=== PATIENT | female | born 1970 | race Caucasian/White ===

== ENCOUNTER 2019-03-21 17:35 | Emergency (ER) | payer OTHER ==
[2019-03-21] MEDS ORDERED: Acetaminophen/HYDROcodone 325-5 MG Tab PO ONE (17:54)
--- NOTE | 2019-03-21 18:00 | EDM.PDOC ---
ED HPI GENERAL MEDICAL PROBLEM - General Chief Complaint: Lower Extremity Injury/Pain Stated Complaint: SLIPPED ON ICE/RIGHT KNEE PAIN Time Seen by Provider: 03/21/19 17:47 Source of Information: Reports: Patient History Limitations: Reports: No Limitations - History of Present Illness INITIAL COMMENTS - FREE TEXT/NARRATIVE: The patient presents with right knee pain. She was taking out the garbage on Monday and she slipped on some ice and twisted her knee. She did hear a pop and feel one. The pain has gotten worse. There has not been swelling just pain. Today it popped again. She can put some weight on it. She did try some crutches today. Onset: Sudden Duration: Day(s): (Monday) Location: Reports: Lower Extremity, Right (Knee) Quality: Reports: Sharp Severity: Severe Improves with: Reports: Immobilization Worsens with: Reports: Movement Context: Reports: Trauma (Slipped on ice on Monday) Associated Symptoms: Reports: No Other Symptoms Right Knee Pain Score (Numeric/FACES): 8 - Related Data Allergies Allergy/AdvReac Type Severity Reaction Status Date / Time No Known Allergies Allergy Verified 03/21/19 17:46 Home Meds: Home Meds Hydrocodone/Acetaminophen [Hydrocodon-Acetaminophen 5-325] 1 - 2 each PO Q6HR PRN #20 tablet 03/21/19 [Rx] Past Medical History - Past Health History Medical/Surgical History: Denies Medical/Surgical History Review of Systems - Review of Systems Review Of Systems: See Below Constitutional: Reports: No Symptoms Eyes: Reports: No Symptoms Ears: Reports: No Symptoms Nose: Reports: No Symptoms Mouth/Throat: Reports: No Symptoms Respiratory: Reports: No Symptoms Cardiovascular: Reports: No Symptoms GI/Abdominal: Reports: No Symptoms Genitourinary: Reports: No Symptoms Musculoskeletal: Reports: Other (Knee pain) ED EXAM, GENERAL - Physical Exam Exam: See Below Exam Limited By: No Limitations General Appearance: Alert, No Apparent Distress Ears: Normal External Exam Nose: Normal Inspection Head: Atraumatic, Normocephalic Neck: Normal Inspection Respiratory/Chest: No Respiratory Distress, Lungs Clear, Normal Breath Sounds Cardiovascular: Regular Rate, Rhythm, No Edema, No Murmur GI/Abdominal: Soft, Non-Tender, No Organomegaly, No Mass Back Exam: Normal Inspection Extremities: Other (Pain upon palpation to the left left knee at the proximal tibia. She can lift her leg off of the bed. She has good sensation and pulses distally. Her ligaments are stable but she did have pain the anterior knee.) Course - Vital Signs Last Recorded V/S: Last Vital Signs Temp 98.1 F 03/21/19 17:47 Pulse 98 03/21/19 17:47 Resp 18 03/21/19 17:47 BP 173/96 H 03/21/19 17:47 Pulse Ox 98 03/21/19 17:47 - Orders/Labs/Meds Orders: Active Orders 24 hr Category Date Time Status Knee Min 4V Rt [CR] Stat Exams 03/21/19 17:53 Ordered Meds: Medications Discontinued Medications Generic Name Dose Route Start Last Admin Trade Name Freq PRN Reason Stop Dose Admin Hydrocodone Bitart/Acetaminophen 2 tab 03/21/19 17:54 03/21/19 18:16 [place] 325-5 Mg PO 03/21/19 17:55 2 tab ONETIME ONE Administration - Re-Assessments/Exams Free Text/Narrative Re-Assessment/Exam: 03/21/19 17:59 I ordered hydrocodone 2pills and an x-ray of her knee. 03/21/19 18:34 Her x-ray shows some degenerative changes. I will give her an Sami wrap and crutches and order and MRI of her knee. I will also have her follow up with Dr Gupta. Departure - Departure Time of Disposition: 18:40 Disposition: Home, Self-Care 01 Condition: Good Clinical Impression: Sprain of right knee Qualifiers: Encounter type: initial encounter Involved ligament of knee: unspecified ligament Qualified Code(s): S83.91XA - Sprain of unspecified site of right knee , initial encounter - Discharge Information *PRESCRIPTION DRUG MONITORING PROGRAM REVIEWED*: No *COPY OF PRESCRIPTION DRUG MONITORING REPORT IN PATIENT RODDY: No Prescriptions: Hydrocodone/Acetaminophen [Hydrocodon-Acetaminophen 5-325] 1 - 2 each PO Q6HR PRN #20 tablet PRN Reason: Pain Referrals: Robert Gasca MD [Primary Care Provider] - Cb Gupta MD [Physician] - 2 Weeks Forms: ED Department Discharge Additional Instructions: Ice your knee for 15 minutes 3 times per day for 2 days. Take motrin or tylenol for pain. If that does not help, try the hydrocodone. I have ordered an MRI of his knee. They will call you with a day and time. Please return if you are worse. Sepsis Event Note - Focused Exam Vital Signs: Vital Signs Temp Pulse Resp BP Pulse Ox 03/21/19 17:47 98.1 F 98 18 173/96 H 98 Date Exam was Performed: 03/21/19 Time Exam was Performed: 18:34 - My Orders Last 24 Hours: My Active Orders 03/21/19 17:53 Knee Min 4V Rt [CR] Stat - Assessment/Plan Last 24 Hours: My Active Orders 03/21/19 17:53 Knee Min 4V Rt [CR] Stat
[2019-03-21 18:04] VITALS: BP 173/96; PULSE 98
--- NOTE | 2019-03-22 07:49 | CR ---
Right knee: Four views of the right knee were obtained. Comparison: No prior knee exam. Osteophytes are noted off the medial and lateral knee. Osteophytes are noted off the patella. Small joint effusion is seen. Spurring is noted off the intertibial spines. No acute fracture, dislocation or other bony abnormality is seen. Impression: 1. Degenerative change. Small joint effusion. 2. No acute bony abnormality is identified. Diagnostic code #2 This report was dictated in [place] Standard Time
== END 2019-03-21 18:50 | disposition home or self-care (01) ==
LOC: JD.ED 17:35
DX: S83.91XA Sprain of unspecified site of right knee, initial encounter (principal); W01.0XXA Fall on same level from slipping, tripping and stumbling without subsequent striking against object, initial encounter
CPT/HCPCS: 73564; 99283; A9270

== ENCOUNTER 2019-11-25 09:35 | Day surgery (SDC) | payer OTHER ==
[~2019-11-25 09:35] MED LIST: Acetaminophen 325 MG Tab PO SCH; Bisacodyl 5 MG Tab PO PRN; Lactated Ringers 1,000 ML IV SCH; Lidocaine 1%/Sod Bicarbonate in NS 8.4% 1 ML Syringe IDERM PRN; Magnesium Hydroxide 400 MG/5 ML Susp 30 ML Cup PO PRN; Morphine 2 MG/ML SYRINGE IVPUSH PRN; Naloxone 0.4 MG/ML SDV IVPUSH PRN; Ondansetron 4 MG/2 ML SDV IVPUSH PRN; Pregabalin 25 MG Cap PO SCH; Sennosides 8.6 MG Tab PO PRN; Sodium Chloride 0.9% 10 ML Syringe FLUSH PRN; oxyCODONE ER 10 MG TAB.ER PO SCH
--- NOTE | 2019-11-25 10:10 | PCM.PREANE ---
Preanesthetic Assessment - Anesthesia/Transfusion/Family Hx Anesthesia History: Prior Anesthesia Without Reaction Family History of Anesthesia Reaction: No Transfusion History: No Prior Transfusion(s) - Review of Systems General: No Symptoms Pulmonary: No Symptoms Cardiovascular: No Symptoms Gastrointestinal: No Symptoms Neurological: No Symptoms Other: Reports: None - Physical Assessment NPO Status Date: 11/25/19 NPO Status Time: 23:30 Vital Signs: Last Vital Signs Temp 36.7 C 11/25/19 09:40 Pulse 84 11/25/19 09:40 Resp 16 11/25/19 09:40 BP 155/72 H 11/25/19 09:40 Pulse Ox Height: 1.63 m Weight: 114.759 kg ASA Class: 2 Mental Status: Alert & Oriented x3 Airway Class: Mallampati = 1 Dentition: Reports: Normal Dentition Thyro-Mental Finger Breadths: 3 Mouth Opening Finger Breadths: 3 ROM/Head Extension: Full Lungs: Clear to Auscultation, Normal Respiratory Effort Cardiovascular: Regular Rate, Regular Rhythm - Lab Values: Laboratory Last Values Urine HCG, Qual Negative (NEGATIVE) 11/25/19 09:35 COVID-19 PCR Not detected (NOT DETECT) 11/21/19 10:00 MRSA (PCR) Negative 11/13/19 15:50 - Allergies Allergies/Adverse Reactions: Allergies Allergy/AdvReac Type Severity Reaction Status Date / Time Dairy Products Allergy Nausea and Verified 11/22/19 13:32 Vomiting latex Allergy Hives Verified 11/22/19 13:32 - Acknowledgements Anesthesia Type Planned: Spinal Pt an Appropriate Candidate for the Planned Anesthesia: Yes Alternatives and Risks of Anesthesia Discussed w Pt/Guardian: Yes Pt/Guardian Understands and Agrees with Anesthesia Plan: Yes PreAnesthesia Questionnaire - Past Health History Medical/Surgical History: Denies Medical/Surgical History HEENT History: Reports: Impaired Vision Cardiovascular History: Reports: None Respiratory History: Reports: Asthma (pt states only affects her when she has a cold) Gastrointestinal History: Reports: Cholelithiasis Genitourinary History: Reports: None STATEMENT SERVICES REPRESENTATIVE History: Reports: Other (See Below) Other OB/BYN History: infertility, ovarian dysfunction Musculoskeletal History: Reports: Osteoarthritis, Other (See Below) Other Musculoskeletal History: left knee sprain Neurological History: Reports: None Psychiatric History: Reports: None Endocrine/Metabolic History: Reports: None Hematologic History: Reports: None Immunologic History: Reports: None Oncologic (Cancer) History: Reports: None Dermatologic History: Reports: None - Infectious Disease History Infectious Disease History: Reports: None - Past Surgical History Head Surgeries/Procedures: Reports: None HEENT Surgical History: Reports: None Cardiovascular Surgical History: Reports: None Respiratory Surgical History: Reports: None GI Surgical History: Reports: Cholecystectomy Female Surgical History: Reports: None, Section Male Surgical History: Endocrine Surgical History: Reports: None Neurological Surgical History: Reports: None Musculoskeletal Surgical History: Reports: None Oncologic Surgical History: Reports: None Dermatological Surgical History: Reports: None - SUBSTANCE USE Smoking Status *Q: Never Smoker Recreational Drug Use History: No - HOME MEDS Home Medications: Home Meds Acetaminophen [Tylenol Extra Strength] 1,000 mg PO Q4H PRN 11/22/19 [History] Albuterol [Proventil Neb Soln] 1 dose NEB QID PRN 11/22/19 [History] Albuterol [Ventolin HFA] 2 puff INH Q4H PRN 11/22/19 [History] Cholecalciferol (Vitamin D3) [Vitamin D3] 5,000 unit PO DAILY 11/22/19 [History] - CURRENT (IN HOUSE) MEDS Current Meds: Current Medications Acetaminophen (Tylenol) 975 mg PO ONETIME [facility]LEX Stop: 11/25/19 12:00 Last Admin: 11/25/19 09:47 Dose: 975 mg Documented by: Aspirin (Ecotrin) 325 mg PO BID [facility]LEX Bisacodyl (Dulcolax) 5 mg PO DAILY PRN PRN Reason: Constipation Morphine Sulfate 8 mg/Epinephrine HCl 0.3 mg/Cefuroxime Sodium 750 mg/Ketorolac Tromethamine 30 mg/Sodium Chloride 7.9 ml 0 mg .XX ONETIME ONE Stop: 11/25/19 11:01 Cyclobenzaprine HCl (Flexeril) 10 mg PO TID PRN PRN Reason: Spasms Docusate Sodium (Colace) 100 mg PO BID [facility]LEX Famotidine (Pepcid) 20 mg PO Q12H [facility] Lactated Ringer's (Ringers, Lactated) 1,000 mls @ 125 mls/hr IV ASDIRECTED [facility]LEX Stop: 11/25/19 23:00 Cefazolin Sodium/Dextrose 2 gm (/ Premix) 50 mls @ 100 mls/hr IV Q8H [facility] Stop: 11/25/19 22:59 Ketorolac Tromethamine (Toradol) 15 mg IVPUSH Q6H PRN PRN Reason: Pain Lidocaine/Sodium Bicarbonate (Buffered Lidocaine 1% In Ns 8.4%) 0.25 ml IDERM ONETIME PRN PRN Reason: Prior to IV Start Stop: 11/25/19 18:00 Magnesium Hydroxide (Milk Of Magnesia) 30 ml PO BID PRN PRN Reason: Constipation Morphine Sulfate (Morphine) 2 mg IVPUSH Q2H PRN PRN Reason: Breakthrough Pain Naloxone HCl (Narcan) 0.1 mg IVPUSH Q5M PRN PRN Reason: Oversedation Ondansetron HCl (Zofran) 4 mg IVPUSH Q6H PRN PRN Reason: Nausea/Vomiting Oxycodone HCl (Oxycontin) 10 mg PO ONETIME ALEX Stop: 11/25/19 12:00 Last Admin: 11/25/19 09:47 Dose: 10 mg Documented by: Oxycodone/Acetaminophen (Percocet 325-5 Mg) 1 - 2 tab PO Q4H PRN PRN Reason: Pain Pregabalin (Lyrica) 50 mg PO ONETIME ALEX Stop: 11/25/19 12:00 Last Admin: 11/25/19 09:47 Dose: 50 mg Documented by: Senna (Senna) 8.6 mg PO BID PRN PRN Reason: Constipation Sodium Chloride (Saline Flush) 10 ml FLUSH ASDIRECTED PRN PRN Reason: Keep Vein Open Stop: 11/25/19 18:00 Discontinued Medications Bupivacaine HCl (Sensorcaine-Mpf 0.25%) Confirm Administered Dose 30 ml .ROUTE .STK-MED ONE Stop: 11/25/19 09:49 Cefazolin Sodium (Ancef) Confirm Administered Dose 2 gm .ROUTE .STK-MED ONE Stop: 11/25/19 09:49 Iodine (Iodine 2% Mild Tincture) Confirm Administered Dose 30 ml .ROUTE .STK-MED ONE Stop: 11/25/19 09:49 Tranexamic Acid (Cyklokapron) Confirm Administered Dose 1,000 mg .ROUTE .STK-MED ONE Stop: 11/25/19 09:49 Vancomycin HCl (Vancomycin) Confirm Administered Dose 1 gm .ROUTE .STK-MED ONE Stop: 11/25/19 09:49
[2019-11-25] MEDS ORDERED: Ropivacaine 0.5% 5 MG/ML 30 ML SDV ONE (11:02)
[2019-11-25] MEDS ORDERED: Midazolam 1 MG/ML 2 ML SDV ONE (11:02)
[2019-11-25] MEDS ORDERED: ceFAZolin 1 GM Vial ONE ×2 (11:02→11:40)
[2019-11-25] MEDS ORDERED: fentaNYL 100 MCG/2 ML SDV ONE (11:39)
[2019-11-25] MEDS ORDERED: Lidocaine 1% 2 ML ONE (11:55)
[2019-11-25] MEDS ORDERED: Propofol 200 MG/20 ML SDV ONE ×2 (11:56→12:03)
[2019-11-25] MEDS ORDERED: Lactated Ringers 1,000 ML ONE (12:04)
[2019-11-25] MEDS: ceFAZolin 1 GM Vial ONE ×2 (12:45→12:50)
[2019-11-25] MEDS: Iodine/Sodium Iodide 2% Tincture 30 ML Bottle ONE ×2 (12:45→12:49)
[2019-11-25] MEDS: Bupivacaine 0.25% 10 ML SDV ONE ×2 (12:46→12:56)
[2019-11-25] MEDS: Morphine 8 MG, EPINEPHrine 0.3 MG, Cefuroxime 750 MG, Ketorolac 30 MG, Sodium Chloride ... ONE ×15 (12:46→14:23)
[2019-11-25] MEDS: Vancomycin 1 GM SDV ONE ×2 (12:47→12:58)
[2019-11-25] MEDS ORDERED: Ketorolac 15 MG/ML SDV IVPUSH PRN (13:00)
--- NOTE | 2019-11-25 13:49 | PCM.POSTAN ---
POST ANESTHESIA ASSESSMENT - MENTAL STATUS Mental Status: Alert, Oriented - VITAL SIGNS Vital Signs: Last Vital Signs Temp 97.5 F 11/25/19 13:26 Pulse 84 11/25/19 09:40 Resp 15 11/25/19 13:30 BP 90/42 L 11/25/19 13:30 Pulse Ox 97 11/25/19 13:30 - RESPIRATORY Respiratory Status: Respiratory Rate WNL, Airway Patent, O2 Saturation Stable, Supplemental Oxygen - CARDIOVASCULAR CV Status: Pulse Rate WNL, Blood Pressure Stable - GASTROINTESTINAL GI Status: No Symptoms - PAIN Pain Score: 0 (post SAB) - POST OP HYDRATION Hydration Status: Adequate & Stable
--- NOTE | 2019-11-25 13:53 | PCM.PRNOTE ---
- Free Text/Narrative Note: Postoperative regional pain control requested by surgeon. Pre-op Dx: Right knee osteoarthritis. Post-op Rx: Total Right knee arthroplasty. Procedure: Rt Adductor canal block with U/S guidance Requesting physician: Dr. Cb Ballesteros Risks and benefits discussed with the patient preoperatively including infectio n, bleeding, incomplete or failed block, possible nerve damage, local anesthetic toxicity. Permit signed. Patient after spinal anesthesia post surgery in PACU, stable , alert and awake. Time out performed. Right mid-thigh was prepped with Chloraprep x 1 and allowed to dry. Under aseptic technique, the right femoral artery and sartorius muscle were identified under ultrasound prior to needle insertion. 4" Stimuplex needle #22 G was inserted under US guidance. Under direct visualization of needle tip the injection of 0.5% Ropivacaine with 1:200k epinephrine, total of 30 mls in divided doses, maintaining negative aspiration was completed without problems. No local anesthetic toxicity was noted. Patient is awake, stable and tolerated the procedure well. Time: 13:34 - 13:41 Please see attached U/S pictures.
--- NOTE | 2019-11-25 14:26 | PCM.OPNOTE ---
- General Post-Op/Procedure Note Date of Surgery/Procedure: 11/25/19 Operative Procedure(s): right total knee arthroplasty Pre Op Diagnosis: right knee osteoarthrosis Post-Op Diagnosis: Same Anesthesia Technique: Local, MAC, Spinal Primary Surgeon: Cb Gupta Anesthesia Provider: Wilian Ramirez Measurement Psychologist: Karolyn Ramsey Measurement Psychologist: Nicole Alexander EBL in mLs: 450 Complications: None Condition: Good Free Text/Narrative:: Intake & Output 11/24/19 11/25/19 11/25/19 22:59 06:59 14:59 Intake Total 300 Balance 300 3/3 9mm 29x9
--- NOTE | 2019-11-25 14:32 | CR ---
Right knee: AP and crosstable lateral views right knee were obtained. Comparison: Prior right knee radiographic study of 03/21/19. Knee prosthesis is seen. Components are aligned. Soft tissue air is noted from surgical procedure. Underlying bony structures are intact. Impression: 1. Satisfactory radiographic appearance of recently placed right knee prosthesis. Diagnostic code #2 This report was dictated in MDT
[2019-11-25] MEDS ORDERED: Cyclobenzaprine 10 MG Tab PO PRN (15:00)
[2019-11-25] MEDS ORDERED: ALBUTEROL INH PRN (15:07)
[2019-11-25] MEDS ORDERED: Albuterol 0.021% 0.63 MG/3 ML Neb Soln NEB PRN (15:07)
[2019-11-25] MEDS: ceFAZolin 2 GM in Premix Bag 1 BAG IV SCH (18:03)
[2019-11-25] MEDS: Acetaminophen/oxyCODONE 325-5 MG Tab PO PRN ×2 (18:54→23:17)
[2019-11-25] MEDS: Famotidine 20 MG Tab PO SCH (20:00)
[2019-11-25] MEDS: Docusate Sodium 100 MG Cap PO SCH (20:00)
[2019-11-26] MEDS: ceFAZolin 2 GM in Premix Bag 1 BAG IV SCH ×2 (02:38→09:17)
[2019-11-26] MEDS: Acetaminophen/oxyCODONE 325-5 MG Tab PO PRN ×2 (03:17→08:15)
[2019-11-26 08:07] VITALS: BP 142/78; PULSE 84
[2019-11-26] MEDS: Famotidine 20 MG Tab PO SCH (08:09)
[2019-11-26] MEDS: Docusate Sodium 100 MG Cap PO SCH (08:09)
--- NOTE | 2019-11-26 08:29 | PCM.SURGPN ---
- General Info Date of Service: 11/26/19 POD#: 1 Functional Status: Reports: Pain Controlled, Tolerating Diet, Ambulating, Urinating, Incentive Spirometry, Other (The pt states she is doing very well and walked 4 times.) - Patient Data Vitals - Most Recent: Last Vital Signs Temp 98.6 F 11/26/19 07:38 Pulse 84 11/26/19 07:38 Resp 16 11/26/19 07:38 BP 142/78 H 11/26/19 07:38 Pulse Ox 94 L 11/26/19 07:38 Weight - Most Recent: 259 lb 4.8 oz I&O - Last 24 Hours: Intake & Output 11/25/19 11/26/19 11/26/19 22:59 06:59 14:59 Intake Total 100 975 Output Total 0 900 Balance 100 75 Lab Results Last 24 Hrs: Laboratory Results - last 24 hr 11/25/19 11/26/19 11/26/19 Range/Units 09:35 05:27 05:27 WBC 11.04 H (3.98-10.04) K/mm3 RBC 4.10 (3.98-5.22) M/mm3 Hgb 11.9 D (11.2-15.7) gm/dl Hct 37.2 (34.1-44.9) % MCV 90.7 (79.4-94.8) fl MCH 29.0 (25.6-32.2) pg MCHC 32.0 L (32.2-35.5) g/dl RDW Std Deviation 44.0 (36.4-46.3) fL Plt Count 155 L (182-369) K/mm3 MPV 13.7 H (9.4-12.3) fl Sodium 136 (136-145) mEq/L Potassium 4.3 (3.5-5.1) mEq/L Chloride 102 (98-107) mEq/L Carbon Dioxide 27 (21-32) mEq/L Anion Gap 11.3 (5-15) BUN 18 (7-18) mg/dL Creatinine 0.7 (0.55-1.02) mg/dL Est Cr Clr Drug Dosing 85.79 mL/min Estimated GFR (MDRD) > 60 (>60) mL/min BUN/Creatinine Ratio 25.7 H (14-18) Glucose 113 H (74-106) mg/dL Total Bilirubin 0.4 (0.2-1.0) mg/dL AST 32 (15-37) U/L ALT 33 (14-59) U/L Alkaline Phosphatase 62 (46-116) U/L Total Protein 6.3 L (6.4-8.2) g/dl Albumin 3.1 L (3.4-5.0) g/dl Globulin 3.2 gm/dL Albumin/Globulin Ratio 1.0 (1-2) Urine HCG, Qual Negative (NEGATIVE) Med Orders - Current: Current Medications Albuterol (Proventil Neb Soln) 0.63 mg NEB QID PRN PRN Reason: asthma Aspirin (Ecotrin) 325 mg PO BID [facility] Last Admin: 11/26/19 08:09 Dose: 325 mg Documented by: Bisacodyl (Dulcolax) 5 mg PO DAILY PRN PRN Reason: Constipation Cholecalciferol (Vitamin D3) 5,000 unit PO DAILY [facility] Last Admin: 11/26/19 08:09 Dose: 5,000 unit Documented by: Cyclobenzaprine HCl (Flexeril) 10 mg PO TID PRN PRN Reason: Spasms Last Admin: 11/25/19 20:00 Dose: 10 mg Documented by: Docusate Sodium (Colace) 100 mg PO BID [facility] Last Admin: 11/26/19 08:09 Dose: 100 mg Documented by: Famotidine (Pepcid) 20 mg PO Q12H [facility] Last Admin: 11/26/19 08:09 Dose: 20 mg Documented by: Cefazolin Sodium/Dextrose 2 gm (/ Premix) 50 mls @ 100 mls/hr IV Q8H [facility] Stop: 11/26/19 10:29 Last Admin: 11/26/19 02:38 Dose: 100 mls/hr Documented by: Magnesium Hydroxide (Milk Of Magnesia) 30 ml PO BID PRN PRN Reason: Constipation Morphine Sulfate (Morphine) 2 mg IVPUSH Q2H PRN PRN Reason: Breakthrough Pain Naloxone HCl (Narcan) 0.1 mg IVPUSH Q5M PRN PRN Reason: Oversedation Albuterol 2 Puff (Ptom) 2 puff INH Q4H PRN PRN Reason: asthma Ondansetron HCl (Zofran) 4 mg IVPUSH Q6H PRN PRN Reason: Nausea/Vomiting Last Admin: 11/25/19 15:55 Dose: 4 mg Documented by: Oxycodone/Acetaminophen (Percocet 325-5 Mg) 1 - 2 tab PO Q4H PRN PRN Reason: Pain Last Admin: 11/26/19 08:15 Dose: 2 tab Documented by: Senna (Senna) 8.6 mg PO BID PRN PRN Reason: Constipation Discontinued Medications Acetaminophen (Tylenol) 975 mg PO ONETIME [facility] Stop: 11/25/19 12:00 Last Admin: 11/25/19 09:47 Dose: 975 mg Documented by: Bupivacaine HCl (Sensorcaine-Mpf 0.25%) Confirm Administered Dose 30 ml .ROUTE .STK-MED ONE Stop: 11/25/19 09:49 Last Admin: 11/25/19 12:56 Dose: 30 ml Documented by: Cefazolin Sodium (Ancef) Confirm Administered Dose 2 gm .ROUTE .STK-MED ONE Stop: 11/25/19 09:49 Last Admin: 11/25/19 12:50 Dose: 2 gm Documented by: Cefazolin Sodium (Ancef) Confirm Administered Dose 1 gm .ROUTE .STK-MED ONE Stop: 11/25/19 11:03 Cefazolin Sodium (Ancef) Confirm Administered Dose 1 gm .ROUTE .STK-MED ONE Stop: 11/25/19 11:41 Morphine Sulfate 8 mg/Epinephrine HCl 0.3 mg/Cefuroxime Sodium 750 mg/Ketorolac Tromethamine 30 mg/Sodium Chloride 7.9 ml 0 mg .XX ONETIME ONE Stop: 11/25/19 11:01 Last Admin: 11/25/19 14:23 Dose: Not Given Documented by: Fentanyl (Sublimaze) Confirm Administered Dose 100 mcg .ROUTE .STK-MED ONE Stop: 11/25/19 11:40 Lactated Ringer's (Ringers, Lactated) 1,000 mls @ 125 mls/hr IV ASDIRECTED [facility] Stop: 11/25/19 23:00 Last Admin: 11/25/19 10:00 Dose: 125 mls/hr Documented by: Lidocaine HCl (Xylocaine-Mpf 1%) Confirm Administered Dose 2 mls @ as directed .ROUTE .STK-MED ONE Stop: 11/25/19 11:56 Lactated Ringer's (Ringers, Lactated) Confirm Administered Dose 1,000 mls @ as directed .ROUTE .STK-MED ONE Stop: 11/25/19 12:05 Iodine (Iodine 2% Mild Tincture) Confirm Administered Dose 30 ml .ROUTE .STK-MED ONE Stop: 11/25/19 09:49 Last Admin: 11/25/19 12:49 Dose: 18 ml Documented by: Ketorolac Tromethamine (Toradol) 15 mg IVPUSH Q6H PRN PRN Reason: Pain Last Admin: 11/25/19 19:54 Dose: 15 mg Documented by: Lidocaine/Sodium Bicarbonate (Buffered Lidocaine 1% In Ns 8.4%) 0.25 ml IDERM ONETIME PRN PRN Reason: Prior to IV Start Stop: 11/25/19 18:00 Last Admin: 11/25/19 09:59 Dose: 0.25 ml Documented by: Midazolam HCl (Versed 1 Mg/Ml) Confirm Administered Dose 2 mg .ROUTE .STK-MED O NE Stop: 11/25/19 11:03 Miscellaneous Medication (Phenylephrine 1 Mg/10 Ml-Ns) Confirm Administered Dose 1 mg IV .STK-MED ONE Stop: 11/25/19 13:03 Oxycodone HCl (Oxycontin) 10 mg PO ONETIME [facility] Stop: 11/25/19 12:00 Last Admin: 11/25/19 09:47 Dose: 10 mg Documented by: Pregabalin (Lyrica) 50 mg PO ONETIME [facility]LEX Stop: 11/25/19 12:00 Last Admin: 11/25/19 09:47 Dose: 50 mg Documented by: Propofol (Diprivan 20 Ml) Confirm Administered Dose 200 mg .ROUTE .STK-MED ONE Stop: 11/25/19 11:57 Propofol (Diprivan 20 Ml) Confirm Administered Dose 400 mg .ROUTE .STK-MED ONE Stop: 11/25/19 12:04 Ropivacaine (Naropin 0.5%) Confirm Administered Dose 30 ml .ROUTE .STK-MED ONE Stop: 11/25/19 11:03 Sodium Chloride (Saline Flush) 10 ml FLUSH ASDIRECTED PRN PRN Reason: Keep Vein Open Stop: 11/25/19 18:00 Tranexamic Acid (Cyklokapron) Confirm Administered Dose 1,000 mg .ROUTE .STK-MED ONE Stop: 11/25/19 09:49 Last Admin: 11/25/19 13:02 Dose: 1,000 mg Documented by: Vancomycin HCl (Vancomycin) Confirm Administered Dose 1 gm .ROUTE .STK-MED ONE Stop: 11/25/19 09:49 Last Admin: 11/25/19 12:58 Dose: 1 gm Documented by: - Exam Wound/Incisions: Dressing Dry and Intact General: Alert, Cooperative, No Acute Distress Lungs: Normal Respiratory Effort Extremities: Other (NVS intact for BLE. Bradford's negative.) Sepsis Event Note - Evaluation Sepsis Screening Result: No Definite Risk - Focused Exam Vital Signs: Vital Signs Temp Pulse Resp BP Pulse Ox 11/26/19 07:38 98.6 F 84 16 142/78 H 94 L 11/26/19 02:28 98.1 F 76 16 141/82 H 95 11/25/19 23:16 98.4 F 83 16 117/76 97 - Problem List Review Problem List Initiated/Reviewed/Updated: Yes - My Orders Last 24 Hours: Active Orders 24 hr Category Date Time Status RT Aerosol Therapy [RC] ASDIRECTED Care 11/25/19 15:08 Active Regular Diet [DIET] Diet 11/25/19 Lunch Active COMPREHENSIVE METABOLIC PN,CMP [CHEM] AM Lab 11/26/19 05:27 Results Albuterol Med 11/25/19 15:07 Active 2 puff INH Q4H PRN Albuterol [Proventil Neb Soln] Med 11/25/19 15:07 Active 0.63 mg NEB QID PRN Aspirin [Ecotrin] Med 11/26/19 09:00 Active 325 mg PO BID Cholecalciferol (Vitamin D3) [Vitamin D3] Med 11/26/19 09:00 Active 5,000 unit PO DAILY Cyclobenzaprine [Flexeril] Med 11/25/19 15:00 Active 10 mg PO TID PRN Docusate Sodium [Colace] Med 11/25/19 21:00 Active 100 mg PO BID Famotidine [Pepcid] Med 11/25/19 21:00 Active 20 mg PO Q12H ceFAZolin [Ancef] 2 gm Med 11/25/19 18:00 Active Premix Bag 1 bag IV Q8H Medication Orders Albuterol (Proventil Neb Soln) 0.63 mg NEB QID PRN PRN Reason: asthma Aspirin (Ecotrin) 325 mg PO BID [facility] Last Admin: 11/26/19 08:09 Dose: 325 mg Documented by: GIRMA Bisacodyl (Dulcolax) 5 mg PO DAILY PRN PRN Reason: Constipation Cholecalciferol (Vitamin D3) 5,000 unit PO DAILY [facility] Last Admin: 11/26/19 08:09 Dose: 5,000 unit Documented by: GIRMA Cyclobenzaprine HCl (Flexeril) 10 mg PO TID PRN PRN Reason: Spasms Last Admin: 11/25/19 20:00 Dose: 10 mg Documented by: JAYE Docusate Sodium (Colace) 100 mg PO BID [facility] Last Admin: 11/26/19 08:09 Dose: 100 mg Documented by: Admin: 11/25/19 20:00 Dose: 100 mg Documented by: JAYE Famotidine (Pepcid) 20 mg PO Q12H [facility] Last Admin: 11/26/19 08:09 Dose: 20 mg Documented by: Admin: 11/25/19 20:00 Dose: 20 mg Documented by: JAYE Cefazolin Sodium/Dextrose 2 gm (/ Premix) 50 mls @ 100 mls/hr IV Q8H [facility] Stop: 11/26/19 10:29 Last Admin: 11/26/19 02:38 Dose: 100 mls/hr Documented by: Infusion: 11/25/19 18:33 Dose: 100 mls/hr Documented by: Admin: 11/25/19 18:03 Dose: 100 mls/hr Documented by: PATITO Magnesium Hydroxide (Milk Of Magnesia) 30 ml PO BID PRN PRN Reason: Constipation Morphine Sulfate (Morphine) 2 mg IVPUSH Q2H PRN PRN Reason: Breakthrough Pain Naloxone HCl (Narcan) 0.1 mg IVPUSH Q5M PRN PRN Reason: Oversedation Albuterol 2 Puff (Ptom) 2 puff INH Q4H PRN PRN Reason: asthma Ondansetron HCl (Zofran) 4 mg IVPUSH Q6H PRN PRN Reason: Nausea/Vomiting Last Admin: 11/25/19 15:55 Dose: 4 mg Documented by: PATITO Oxycodone/Acetaminophen (Percocet 325-5 Mg) 1 - 2 tab PO Q4H PRN PRN Reason: Pain Last Admin: 11/26/19 08:15 Dose: 2 tab Documented by: Admin: 11/26/19 03:17 Dose: 2 tab Documented by: Admin: 11/25/19 23:17 Dose: 2 tab Documented by: Admin: 11/25/19 18:54 Dose: 2 tab Documented by: PATITO Senna (Senna) 8.6 mg PO BID PRN PRN Reason: Constipation - Assessment Assessment (Free Text/Narrative):: POD#1 - right TKA - Plan Plan (Free Text/Narrative):: 1. Discharge to home today. 2. Hgb 11.9. 3. Outpatient therapy. 4. 325mg ASA PO BID, frequent mobility, SCDs. The pt's case was discussed with Dr. Gupta.
--- NOTE | 2019-11-26 08:40 | PCM48HPAN ---
Post Anesthesia Note - EVALUATION WITHIN 48HRS OF ANESTHETIC Vital Signs in Normal Range: Yes Patient Participated in Evaluation: Yes Respiratory Function Stable: Yes Airway Patent: Yes Cardiovascular Function Stable: Yes Hydration Status Stable: Yes Pain Control Satisfactory: Yes Nausea and Vomiting Control Satisfactory: Yes Mental Status Recovered: Yes Vital Signs: Last Vital Signs Temp 37.0 C 11/26/19 07:38 Pulse 84 11/26/19 07:38 Resp 16 11/26/19 07:38 BP 142/78 H 11/26/19 07:38 Pulse Ox 94 L 11/26/19 07:38
[2019-11-26] MEDS ORDERED: Aspirin 325 MG Tab.EC PO SCH (09:00)
[2019-11-26] MEDS ORDERED: Cholecalciferol (Vitamin D3) 5,000 UNIT Tab PO SCH (09:00)
--- NOTE | 2019-11-26 14:55 | OR ---
DATE OF OPERATION: 11/25/2019 SURGEON: Cb Gupta MD This entire procedure was significantly more complicated secondary to the patient's large BMI and her thigh and calf circumference making manipulation of the knee as well as retraction and visualization significantly more difficult throughout the procedure. OPERATION PERFORMED: Right total knee arthroplasty. PREOPERATIVE DIAGNOSIS: Right knee osteoarthrosis. POSTOPERATIVE DIAGNOSIS: Right knee osteoarthrosis. ANESTHESIA: Local MAC with spinal. ANESTHESIA PROVIDER: Katherine Barba. COLD ROLL PACKER SHEET IRON: Karolyn Ramsey PA-C, and Nicole Alexander LPN. ESTIMATED BLOOD LOSS: 450 mL. COMPLICATIONS: None. CONDITION: Stable. IMPLANTS: 1. [place] size 3 press-fit CR femur. 2. [place] size 3 press-fit tibial base plate. 3. [place] size 3, 9 mm CS polyethylene insert. 4. Villa size 29 x 9 mm press-fit asymmetric patella. DESCRIPTION OF PROCEDURE: The patient was identified in the preop holding area. Proper site was marked and identified by the surgeon. The patient was taken back to the operating theater. After adequate anesthesia, the patient's right lower extremity had a nonsterile tourniquet applied and it was sterilely prepped and draped in the usual sterile fashion. OR time-out was performed. The patient received 2 g IV Ancef. At this time, the right lower extremity was exsanguinated. Tourniquet was insufflated to 300 mmHg. Standard medial parapatellar incision was made. Medial parapatellar arthrotomy was created. Deep fibers of the MCL were raised and anterior fat pad was resected. At this time, attention was turned to the patella. Patella measured a 23, it was resected to a 13 for 29 x 9 mm patella. Drill holes were then drilled and found to be in adequate position. The drill was then drilled in the distal femur and the intramedullary distal femoral cutting guide was then placed. 10 mm was resected off the distal femur and was found to be an adequate resection. Sizing guide was placed. It was found to be a size 3 press-fit CR femur that was shown on the implant record at the beginning of this dictation. The drill holes were drilled for the epicondylar axis using [place] line and epicondyles as reference. At this time, the 4-in- 1 cutting block was placed. An anterior posterior and anterior and posterior chamfer cuts were then completed. Attention was turned to the tibia. The posterior medial lateral retractors were placed. The extramedullary tibial guide was placed. It was placed in the old footprint of the ACL. It was aligned with the center of the ankle and 0 degrees of slope, 9 mm was then resected off the unaffected side. There was found to be an acceptable reduction. At this time, posterior osteophytes were removed along with medial and lateral meniscus. A trial implant was placed with a correct sized tibia that was mentioned at the beginning of the dictation. A Villa size 3, 9 mm CS polyethylene insert was then placed. The patient's knee was brought through range of motion. The patella was tracking centrally and was stable to varus and valgus stress. Alignment was found to be roughly at 0 degrees. The tibia was stamped and drilled in proper rotation. The universal tibial base plate was impacted in place. Next, the [place] size 3 press-fit CR femur impacted into place and the Villa size 3, 9 mm CS polyethylene insert was placed. The patient's knee was brought into full extension. The patella was then press-fit in place at this time. Tourniquet was deflated. One liter dilute Betadine solution was irrigated through the knee along with 3 L of pulse lavage irrigation with Ancef. Periarticular injection was then completed. The patient's knee was brought through a range of motion. Knee was found to be stable to varus valgus stress, the patella was tracking centrally with full range of motion. At this time, a #2 barbed suture was used for closure of the medial parapatellar arthrotomy. Topical tranexamic acid was placed. 2-0 Vicryl was used subcutaneously, Prineo was used for the skin. The patient tolerated the procedure well and was sent to the PACU in stable condition. MMRAINA /[id number] MAHAD
== END 2019-11-26 11:25 | disposition home or self-care (01) ==
LOC: JD.SDS 09:35 → JD.MS 09:45 → JD.SDS 11-26 11:25
PROVIDERS: ATTEND Orthopaedic Surgery
DX: M17.11 Unilateral primary osteoarthritis, right knee (principal); J45.909 Unspecified asthma, uncomplicated; Z01.812 Encounter for preprocedural laboratory examination; Z20.828 Contact with and (suspected) exposure to other viral communicable diseases; Z91.040 Latex allergy status; Z91.011 Allergy to milk products
CPT/HCPCS: 27447; 36415; 73560; 80053; 81025; 85027; 87635; 87641; 97110; 97116; 97161; 97165; 97535; A9270; C1776; J0171; J0690; J0697; J1885; J2001; J2250; J2270; J2370; J2405; J2704; J2795; J3010; J3370; J3490; J7120; 01402; 64450; U0002

== ENCOUNTER 2020-11-18 18:33 | Emergency (ER) | payer BC, OTHER ==
[2020-11-18 18:50] VITALS: BP 187/100; PULSE 86
--- NOTE | 2020-11-18 19:44 | EDM.PDOC ---
ED HPI GENERAL MEDICAL PROBLEM - General Chief Complaint: ENT Problem Stated Complaint: LEFT EAR INFECTION Time Seen by Provider: 11/18/20 19:27 Source of Information: Reports: Patient, RN Notes Reviewed - History of Present Illness INITIAL COMMENTS - FREE TEXT/NARRATIVE: 50 yr old female comes in with severe L earache. This started several days ago. Started of cipro drops 2 days ago but sx getting worse instead of better. Has pain outside of ear ear canal that radiates to her jaw. No sore throat, cough or sinus problems. Left Ear Pain Score (Numeric/FACES): 10 - Related Data Allergies Allergy/AdvReac Type Severity Reaction Status Date / Time latex Allergy Hives Verified 11/18/20 18:50 Dairy Products AdvReac Nausea and Verified 11/18/20 18:50 Vomiting Home Meds: Home Meds Albuterol [Proventil Neb Soln] 1 dose NEB QID PRN 11/22/19 [History] Albuterol [Ventolin HFA] 2 puff INH Q4H PRN 11/22/19 [History] Amoxicillin/Clavulanate K [Augmentin 875-125 MG] 1 tab PO BID #20 tablet 11/18/20 [Rx] Ofloxacin [Ocuflox 0.3% Ophth Soln] 5 drop EARLF DAILY 11/18/20 [History] Past Medical History - Past Health History Medical/Surgical History: Denies Medical/Surgical History HEENT History: Reports: Impaired Vision Cardiovascular History: Reports: None Respiratory History: Reports: Asthma Gastrointestinal History: Reports: Cholelithiasis Genitourinary History: Reports: None 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) Other ROLLER SETTER History: infertility, ovarian dysfunction Musculoskeletal History: Reports: Osteoarthritis, Other (See Below) Other Musculoskeletal History: left knee sprain Neurological History: Reports: None Psychiatric History: Reports: None Endocrine/Metabolic History: Reports: Obesity/BMI 30+ Hematologic History: Reports: None Immunologic History: Reports: None Oncologic (Cancer) History: Reports: None Dermatologic History: Reports: None - Infectious Disease History Infectious Disease History: Reports: None - Past Surgical History Cardiovascular Surgical History: Reports: None GI Surgical History: Reports: Cholecystectomy Female Surgical History: Reports: Section Neurological Surgical History: Reports: None Social & Family History - Tobacco Use Tobacco Use Status *Q: Never Tobacco User Second Hand Smoke Exposure: No - Caffeine Use Caffeine Use: Reports: None - Recreational Drug Use Recreational Drug Use: No ED ROS ENT - Review of Systems Review Of Systems: See Below Constitutional: Reports: Fever (possible low grade), Chills HEENT: Reports: Ear Pain. Denies: Ear Discharge, Sinus Problem, Throat Pain Respiratory: Denies: Shortness of Breath, Cough GI/Abdominal: Denies: Abdominal Pain, Vomiting Musculoskeletal: Reports: No Symptoms Skin: Reports: No Symptoms Neurological: Reports: No Symptoms ED EXAM, ENT - Physical Exam Exam: See Below General Appearance: Alert, No Apparent Distress Eye Exam: Bilateral Eye: PERRL Ears: Other (tender outer canal opening, no visible erythema or swelling, ear canal is swollen, no exudate, TM very mildly inflamed as well) Nose: Normal Inspection Mouth/Throat: Normal Inspection Head: Atraumatic. No: Facial Swelling Neck: Supple. No: Lymphadenopathy (L), Lymphadenopathy (R) Respiratory/Chest: No Respiratory Distress, Lungs Clear, Normal Breath Sounds Cardiovascular: Regular Rate, Rhythm Extremities: Normal Inspection Neurological: Alert, Oriented, No Motor/Sensory Deficits Skin: Warm, Dry, Normal Color, No Rash Course - Vital Signs Last Recorded V/S: Last Vital Signs Temp 97.8 F 11/18/20 18:46 Pulse 86 11/18/20 18:46 Resp 16 11/18/20 18:46 BP 187/100 H 11/18/20 18:46 Pulse Ox 98 11/18/20 18:46 Departure - Departure Time of Disposition: 19:41 Disposition: Home, Self-Care 01 Condition: Fair Clinical Impression: Otitis media Qualifiers: Chronicity: acute Laterality: left Recurrence: non-recurrent Spontaneous tympanic membrane rupture: without spontaneous rupture Otitis externa Qualifiers: Otitis externa type: unspecified type - Discharge Information Prescriptions: Amoxicillin/Clavulanate K [Augmentin 875-125 MG] 1 tab PO BID #20 tablet Instructions: Otitis Media, Adult Referrals: Robert Gasca MD [Primary Care Provider] - Forms: ED Department Discharge Additional Instructions: Continue the ear drops as prescribed. Start Augmentin 875 this evening and take that twice daily for 10 days or until gone. That has been sent to [facility] at [facility]. Take the augmentin with food, also start probiotic twice daily. Follow up clinic as needed if symptoms not resolving as expected over the next 5 to 7 days. Return to ED as needed if symptoms worsening in any way. Sepsis Event Note (ED) - Evaluation Sepsis Screening Result: Possible Sepsis Risk - Focused Exam Vital Signs: Vital Signs Temp Pulse Resp BP Pulse Ox 11/18/20 18:46 97.8 F 86 16 187/100 H 98
== END 2020-11-18 19:48 | disposition home or self-care (01) ==
LOC: JD.ED 18:33
DX: H60.92 Unspecified otitis externa, left ear (principal); H66.92 Otitis media, unspecified, left ear; E66.9 Obesity, unspecified; Z68.42 Body mass index [BMI] 45.0-49.9, adult; Z91.011 Allergy to milk products; Z91.040 Latex allergy status
CPT/HCPCS: 99282; 99283

== ENCOUNTER 2020-11-22 08:10 | Emergency (ER) | payer BC ==
[2020-11-22 08:20] VITALS: PULSE 92
--- NOTE | 2020-11-22 08:24 | EDM.PDOC ---
ED HPI GENERAL MEDICAL PROBLEM - General Chief Complaint: ENT Problem Stated Complaint: EAR PAIN Time Seen by Provider: 11/22/20 08:18 - History of Present Illness INITIAL COMMENTS - FREE TEXT/NARRATIVE: 50-year-old female presents the emergency room with continued ear pain and pressure on the left side. Patient was started and treated for an external otitis almost a week ago. And the swelling in her external ear is much better. However it sounds like she is hearing through fluid all the time and she just cannot clear ears. Patient was seen here on the and was started on Augmentin and she has not noticed any improvement. She is not aware of any fevers or chills. She has had a history of a perforated eardrum on the right but still has some really good hearing in that ear. She is not aware of any fevers or chills no neck pain or external facial neck or head swelling. Left Ear Pain Score (Numeric/FACES): 10 - Related Data Allergies Allergy/AdvReac Type Severity Reaction Status Date / Time latex Allergy Hives Verified 11/22/20 08:19 Dairy Products AdvReac Nausea and Verified 11/22/20 08:19 Vomiting Home Meds: Home Meds Albuterol [Proventil Neb Soln] 1 dose NEB QID PRN 11/22/19 [History] Albuterol [Ventolin HFA] 2 puff INH Q4H PRN 11/22/19 [History] Amoxicillin/Clavulanate K [Augmentin 875-125 MG] 1 tab PO BID #20 tablet 11/18/20 [Rx] Ofloxacin [Ocuflox 0.3% Ophth Soln] 5 drop EARLF DAILY 11/18/20 [History] predniSONE [Prednisone] 60 mg PO QAM #12 tablet 11/22/20 [Rx] Past Medical History - Past Health History Medical/Surgical History: Denies Medical/Surgical History HEENT History: Reports: Impaired Vision Cardiovascular History: Reports: None Respiratory History: Reports: Asthma Gastrointestinal History: Reports: Cholelithiasis Genitourinary History: Reports: None 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 PUMP 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 History: infertility, ovarian dysfunction Musculoskeletal History: Reports: Osteoarthritis, Other (See Below) Other Musculoskeletal History: left knee sprain Neurological History: Reports: None Psychiatric History: Reports: None Endocrine/Metabolic History: Reports: Obesity/BMI 30+ Hematologic History: Reports: None Immunologic History: Reports: None Oncologic (Cancer) History: Reports: None Dermatologic History: Reports: None - Infectious Disease History Infectious Disease History: Reports: None - Past Surgical History Cardiovascular Surgical History: Reports: None GI Surgical History: Reports: Cholecystectomy Female Surgical History: Reports: Section Neurological Surgical History: Reports: None Social & Family History - Caffeine Use Caffeine Use: Reports: None ED ROS GENERAL - Review of Systems Review Of Systems: See Below Constitutional: Reports: No Symptoms HEENT: Reports: Ear Pain. Denies: Rhinitis, Vertigo Respiratory: Reports: No Symptoms Cardiovascular: Reports: No Symptoms Endocrine: Reports: No Symptoms GI/Abdominal: Reports: No Symptoms : Reports: No Symptoms Musculoskeletal: Reports: No Symptoms ED EXAM, GENERAL - Physical Exam Exam: See Below Exam Limited By: No Limitations General Appearance: Alert, No Apparent Distress, Other (Blood pressure is quite elevated patient states this always goes up when she is seen in the emergency room) Eye Exam: Bilateral Eye: Normal Inspection Ears: Other (Hearing is diminished on the left side external ear is about to normal tympanic membrane is normal color slightly bulging the ear is a little more tender than one would expect palpation around the here is a little tender anteriorly. Palpation around the jaws nontender no significant adenopathy ) Throat/Mouth: Normal Inspection, Normal Teeth (Extra attention was paid to the teeth to be sure she did not have a dental issue radiating to her ear), Normal Gums, Normal Oropharynx, No Airway Compromise Head: Atraumatic, Normocephalic, Other (Minimal discomfort with palpation around the ear) Neck: Normal Inspection, Supple, Non-Tender, Other (No apparent muscle tenderness) Respiratory/Chest: No Respiratory Distress, Lungs Clear, Normal Breath Sounds Cardiovascular: Regular Rate, Rhythm, No Edema, No Murmur Course - Vital Signs Last Recorded V/S: Last Vital Signs Temp 36.7 C 11/22/20 08:19 Pulse 92 11/22/20 08:19 Resp 20 11/22/20 08:19 BP 166/99 H 11/22/20 08:46 Pulse Ox 97 11/22/20 08:19 - Orders/Labs/Meds Meds: Medications Discontinued Medications Generic Name Dose Route Start Last Admin Trade Name Freq PRN Reason Stop Dose Admin Prednisone 60 mg 11/22/20 08:46 Prednisone 20 Mg Tab PO 11/22/20 08:47 ONETIME ONE - Re-Assessments/Exams Free Text/Narrative Re-Assessment/Exam: 11/22/20 08:52 What the patient is describing is a continued pressure sensation in the air. I do not think extending antibiotics is going to do any good at this point I discussed situation with Dr. Argueta on-call ENT at [facility] in [place] and he agrees with putting her on a short course of steroids. He will also is open to seeing the patient in the ENT clinic if she is not demonstrating improvement fairly quickly. Patient will be started on prednisone 60 mg daily for 5 days. Departure - Departure Time of Disposition: 08:53 Disposition: Home, Self-Care 01 Clinical Impression: Pressure sensation in left ear - Discharge Information Referrals: Robert Gasca MD [Primary Care Provider] - Forms: ED Department Discharge Additional Instructions: Return to the emergency room with any questions problems or worsening symptoms return if you develop any fevers or you notice any significant swelling in your head or neck. You been started on prednisone your first dose was given here in the emergency room. Tomorrow morning be at the [facility] as soon as they open at 8 AM and pickup the remaining prednisone. He will take 3 pills every morning until they are gone. Follow-up with the ear nose and throat clinic in [place] if needed. I discussed her situation with Dr. Argueta. There are 4 doctors in the clinic and they can probably work you in quickly if they need to. Their phone number is [phone] Follow-up with your regular healthcare provider later this week for recheck your blood pressure. Sepsis Event Note (ED) - Focused Exam Vital Signs: Vital Signs Temp Pulse Resp BP Pulse Ox 11/22/20 08:46 166/99 H 11/22/20 08:19 36.7 C 92 20 180/111 H 97
[2020-11-22] MEDS ORDERED: predniSONE 20 MG Tab PO ONE (08:46)
[2020-11-22 08:55] VITALS: BP 166/99
== END 2020-11-22 09:16 | disposition home or self-care (01) ==
LOC: JD.ED 08:10
DX: H93.8X2 Other specified disorders of left ear (principal); J45.909 Unspecified asthma, uncomplicated; E66.9 Obesity, unspecified; Z68.42 Body mass index [BMI] 45.0-49.9, adult; Z91.040 Latex allergy status; Z91.011 Allergy to milk products; Z79.899 Other long term (current) drug therapy
CPT/HCPCS: 99282; J7512; 99283

== ENCOUNTER 2021-01-02 10:17 | Emergency (ER) | payer BC ==
[2021-01-02 10:28] VITALS: BP 141/86; PULSE 105
--- NOTE | 2021-01-02 10:38 | EDM.PDOC ---
ED HPI GENERAL MEDICAL PROBLEM - General Chief Complaint: Respiratory Problem Stated Complaint: CHEST PAIN/SOB Time Seen by Provider: 01/02/21 10:40 Source of Information: Reports: Patient, RN Notes Reviewed History Limitations: Reports: No Limitations - History of Present Illness INITIAL COMMENTS - FREE TEXT/NARRATIVE: Patient presents with increasing work of breathing was diagnosed with Covid last weekend. She been on albuterol inhaler neb treatments she does have a history of underlying asthma. Has not had a vaccination. She has had lack of sleep, does have some stuffy nose but no sore throat no smell or taste problems her appetite seems to be pretty good she does feel dehydrated does not feel like she has been keeping up with her fluids no major muscle aches or pains she does have a chest pain with coughing. Nonproductive cough. Non-smoker, father with a history of coronary disease age 65 otherwise no family history of any other heart or lung disease. Patient has had normal urine output no vomiting or diarrhea no abdominal pain. Has increasing work of breathing and shortness of breath with exertion no lightheadedness or dizziness no fainting spell no headaches. Left Generalized Pain Score (Numeric/FACES): 5 - Related Data Allergies Allergy/AdvReac Type Severity Reaction Status Date / Time latex Allergy Hives Verified 01/02/21 10:28 Dairy Products AdvReac Nausea and Verified 01/02/21 10:28 Vomiting Home Meds: Home Meds Albuterol [Proventil Neb Soln] 1 dose NEB QID PRN 11/22/19 [History] Albuterol [Ventolin HFA] 2 puff INH Q4H PRN 11/22/19 [History] Ofloxacin [Ocuflox 0.3% Ophth Soln] 5 drop EARLF DAILY 11/18/20 [History] Naproxen [Naprosyn] 500 mg PO Q12HR #30 tab 01/02/21 [Rx] Ondansetron [Zofran ODT] 4 mg PO Q6H PRN #12 tab.dis 01/02/21 [Rx] P-Ephed HCl/Codeine/Guaifen [Coditussin DAC Liquid] 473 ml PO Q6HR PRN #1 liquid 01/02/21 [Rx] Past Medical History - Past Health History Medical/Surgical History: Denies Medical/Surgical History HEENT History: Reports: Impaired Vision, Otitis Media Cardiovascular History: Reports: None Respiratory History: Reports: Asthma Gastrointestinal History: Reports: Cholelithiasis Genitourinary History: Reports: None [employer] History: Reports: Other (See Below) Other [employer] History: infertility, ovarian dysfunction Musculoskeletal History: Reports: Osteoarthritis, Other (See Below) Other Musculoskeletal History: left knee sprain Neurological History: Reports: None Psychiatric History: Reports: None Endocrine/Metabolic History: Reports: Obesity/BMI 30+ Hematologic History: Reports: None Immunologic History: Reports: None Oncologic (Cancer) History: Reports: None Dermatologic History: Reports: None - Infectious Disease History Infectious Disease History: Reports: None - Past Surgical History Head Surgeries/Procedures: Reports: None HEENT Surgical History: Reports: None Cardiovascular Surgical History: Reports: None Respiratory Surgical History: Reports: None GI Surgical History: Reports: Cholecystectomy Female Surgical History: Reports: Section Endocrine Surgical History: Reports: None Neurological Surgical History: Reports: None Musculoskeletal Surgical History: Reports: None Oncologic Surgical History: Reports: None Dermatological Surgical History: Reports: None Social & Family History - Tobacco Use Tobacco Use Status *Q: Never Tobacco User Second Hand Smoke Exposure: No - Caffeine Use Caffeine Use: Reports: Coffee - Recreational Drug Use Recreational Drug Use: No ED ROS GENERAL - Review of Systems Review Of Systems: See Below Constitutional: Reports: Fever, Chills, Fatigue, Night Sweats HEENT: Reports: Rhinitis. Denies: Throat Pain, Vision Change Respiratory: Reports: Shortness of Breath, Cough. Denies: Sputum Cardiovascular: Reports: Chest Pain, Dyspnea on Exertion. Denies: Edema, Orthopnea, PND Endocrine: Reports: Fatigue GI/Abdominal: Denies: Abdominal Pain, Diarrhea, Nausea, Vomiting Musculoskeletal: Denies: Neck Pain, Muscle Stiffness Skin: Reports: No Symptoms Neurological: Denies: Dizziness, Headache Psychiatric: Reports: No Symptoms ED EXAM, GENERAL - Physical Exam Exam: See Below Exam Limited By: No Limitations General Appearance: Alert, WD/WN, No Apparent Distress Eye Exam: Bilateral Eye: PERRL Throat/Mouth: Normal Inspection, Other (Dry mucous membranes) Head: Atraumatic, Normocephalic Neck: Normal Inspection, Supple, Non-Tender Respiratory/Chest: No Respiratory Distress, No Accessory Muscle Use, Rhonchi Cardiovascular: Normal Peripheral Pulses, Regular Rate, Rhythm, No Edema, No JVD, No Murmur GI/Abdominal: Normal Bowel Sounds, Soft, Non-Tender, No Distention, No Mass Extremities: Normal Inspection, Normal Range of Motion, No Pedal Edema Neurological: Alert, Oriented, CN II-XII Intact Psychiatric: Normal Affect Skin Exam: Warm #1 Interpretation EKG Date: 01/02/21 Rhythm: NSR EKG Interpretation Comments: Reviewed EKG showing sinus tachycardia rate of 103 IN 142 QRS is 84 QT corrected 454 nonspecific T wave changes no acute ischemic changes are noted. Course - Vital Signs Text/Narrative:: Positive COVID suspect patient may benefit from monoclonal antibodies however rule out for other illness including coronary disease, PE, pneumonia, dehydration she does look dehydrated rule out electrolyte abnormality renal function abnormality other metabolic derangement. Will review with patient Regeneron therapy, risk benefits and alternatives and emergency use authorization at this point depending on her lab results suspect benefits outweigh any of the risks. Last Recorded V/S: Last Vital Signs Temp 98.0 F 01/02/21 10:27 Pulse 105 H 01/02/21 10:27 Resp 19 01/02/21 10:27 BP 141/86 H 01/02/21 10:27 Pulse Ox 91 L 01/02/21 10:27 - Orders/Labs/Meds Orders: Active Orders 24 hr Category Date Time Status Peripheral IV Care [RC] . DIRECTED Care 01/02/21 10:40 Active Vital Signs [RC] Q15M Care 01/02/21 11:58 Active CXR [Chest 1V Frontal] [CR] Stat Exams 01/02/21 10:39 Taken PROCALCITONIN [REF] Stat Lab 01/02/21 10:40 Received UA RFX CRISTIAN AND CULT IF INDIC [URIN] Stat Lab 01/02/21 10:39 Ordered EPINEPHrine [Adrenalin] Med 01/02/21 11:58 Active 0.3 mg IM ONETIME PRN Famotidine [Pepcid] Med 01/02/21 11:58 Active 20 mg IVPUSH ONETIME PRN Sodium Chloride 0.9% [Saline Flush] Med 01/02/21 10:39 Active 10 ml FLUSH ASDIRECTED PRN Sodium Chloride 0.9% [Saline Flush] Med 01/02/21 12:00 Active 30 ml FLUSH ASDIRECTED diphenhydrAMINE [Benadryl] Med 01/02/21 11:58 Active 50 mg IVPUSH ONETIME PRN methylPREDNISolone Sod Succ [Solu-MEDROL] Med 01/02/21 11:58 Active 125 mg IVPUSH ONETIME PRN Peripheral IV Insertion Adult [OM.PC] Stat Oth 01/02/21 10:39 Ordered EKG 12 Lead [EK] Stat Ther 01/02/21 10:39 Ordered Medication Orders Diphenhydramine HCl (Diphenhydramine 50 Mg/Ml Sdv) 50 mg IVPUSH ONETIME PRN PRN Reason: hypersensitivity reaction Epinephrine HCl (Epinephrine 1 Mg/Ml Sdv) 0.3 mg IM ONETIME PRN PRN Reason: hypersensitivity reaction Famotidine (Famotidine 20 Mg/2 Ml Sdv) 20 mg IVPUSH ONETIME PRN PRN Reason: hypersensitivity reaction Methylprednisolone Sodium Succinate (Methylprednisolone Sodium Succinate 125 Mg/2 Ml Sdv) 125 mg IVPUSH ONETIME PRN PRN Reason: hypersensitivity reaction Sodium Chloride (Sodium Chloride 0.9% 10 Ml Syringe) 10 ml FLUSH ASDIRECTED PRN PRN Reason: Keep Vein Open Last Admin: 01/02/21 10:46 Dose: 10 ml Documented by: SOFYA Sodium Chloride (Sodium Chloride 0.9% 10 Ml Syringe) 30 ml FLUSH ASDIRECTED [facility] Labs: Laboratory Tests 01/02/21 01/02/21 01/02/21 Range/Units 10:40 10:40 10:40 WBC 3.73 L (3.98-10.04) K/mm3 RBC 4.49 (3.98-5.22) M/mm3 Hgb 13.1 (11.2-15.7) gm/dl Hct 40.6 (34.1-44.9) % MCV 90.4 (79.4-94.8) fl MCH 29.2 (25.6-32.2) pg MCHC 32.3 (32.2-35.5) g/dl RDW Std Deviation 44.5 (36.4-46.3) fL Plt Count 135 L (182-369) K/mm3 MPV 11.7 (9.4-12.3) fl Neut % (Auto) 80.9 H (34.0-71.1) % Lymph % (Auto) 13.9 L (19.3-51.7) % [place] % (Auto) 4.6 L (4.7-12.5) % Eos % (Auto) 0.3 L (0.7-5.8) Baso % (Auto) 0.3 (0.1-1.2) % Neut # (Auto) 3.02 (1.56-6.13) K/mm3 Lymph # (Auto) 0.52 L (1.18-3.74) K/mm3 [place] # (Auto) 0.17 L (0.24-0.36) K/mm3 Eos # (Auto) 0.01 L (0.04-0.36) K/mm3 Baso # (Auto) 0.01 (0.01-0.08) K/mm3 D-Dimer, Quantitative 0.32 (0.19-0.50) mg/L Sodium 134 L (136-145) mEq/L Potassium 3.2 L (3.5-5.1) mEq/L Chloride 101 (98-107) mEq/L Carbon Dioxide 26 (21-32) mEq/L Anion Gap 10.2 (5-15) BUN 10 (7-18) mg/dL Creatinine 0.7 (0.55-1.02) mg/dL Est Cr Clr Drug Dosing 84.87 mL/min Estimated GFR (MDRD) > 60 (>60) mL/min BUN/Creatinine Ratio 14.3 (14-18) Glucose 187 H (70-99) mg/dL Calcium 8.0 L (8.5-10.1) mg/dL Total Bilirubin 0.3 (0.2-1.0) mg/dL AST 30 (15-37) U/L ALT 31 (14-59) U/L Alkaline Phosphatase 83 (46-116) U/L Troponin I < 0.017 (0.00-0.056) ng/mL C-Reactive Protein 17.4 H* (<1.0) mg/dL Total Protein 6.9 (6.4-8.2) g/dl Albumin 3.1 L (3.4-5.0) g/dl Globulin 3.8 gm/dL Albumin/Globulin Ratio 0.8 L (1-2) SARS-CoV-2 RNA (JOSSELINE) (NEGATIVE) 01/02/21 Range/Units 11:06 WBC (3.98-10.04) K/mm3 RBC (3.98-5.22) M/mm3 Hgb (11.2-15.7) gm/dl Hct (34.1-44.9) % MCV (79.4-94.8) fl MCH (25.6-32.2) pg MCHC (32.2-35.5) g/dl RDW Std Deviation (36.4-46.3) fL Plt Count (182-369) K/mm3 MPV (9.4-12.3) fl Neut % (Auto) (34.0-71.1) % Lymph % (Auto) (19.3-51.7) % [place] % (Auto) (4.7-12.5) % Eos % (Auto) (0.7-5.8) Baso % (Auto) (0.1-1.2) % Neut # (Auto) (1.56-6.13) K/mm3 Lymph # (Auto) (1.18-3.74) K/mm3 [place] # (Auto) (0.24-0.36) K/mm3 Eos # (Auto) (0.04-0.36) K/mm3 Baso # (Auto) (0.01-0.08) K/mm3 D-Dimer, Quantitative (0.19-0.50) mg/L Sodium (136-145) mEq/L Potassium (3.5-5.1) mEq/L Chloride (98-107) mEq/L Carbon Dioxide (21-32) mEq/L Anion Gap (5-15) BUN (7-18) mg/dL Creatinine (0.55-1.02) mg/dL Est Cr Clr Drug Dosing mL/min Estimated GFR (MDRD) (>60) mL/min BUN/Creatinine Ratio (14-18) Glucose (70-99) mg/dL Calcium (8.5-10.1) mg/dL Total Bilirubin (0.2-1.0) mg/dL AST (15-37) U/L ALT (14-59) U/L Alkaline Phosphatase (46-116) U/L Troponin I (0.00-0.056) ng/mL C-Reactive Protein (<1.0) mg/dL Total Protein (6.4-8.2) g/dl Albumin (3.4-5.0) g/dl Globulin gm/dL Albumin/Globulin Ratio (1-2) SARS-CoV-2 RNA (JOSSELINE) Positive H (NEGATIVE) Meds: Medications Generic Name Dose Route Start Last Admin Trade Name Raulq PRN Reason Stop Dose Admin Diphenhydramine HCl 50 mg 01/02/21 11:58 Diphenhydramine 50 Mg/Ml Sdv IVPUSH ONETIME PRN hypersensitivity reaction Epinephrine HCl 0.3 mg 01/02/21 11:58 Epinephrine 1 Mg/Ml Sdv IM ONETIME PRN hypersensitivity reaction Famotidine 20 mg 01/02/21 11:58 Famotidine 20 Mg/2 Ml Sdv IVPUSH ONETIME PRN hypersensitivity reaction Methylprednisolone Sodium Succinate 125 mg 01/02/21 11:58 Methylprednisolone Sodium Succinate 125 Mg/2 Ml Sdv IVPUSH ONETIME PRN hypersensitivity reaction Sodium Chloride 10 ml 01/02/21 10:39 01/02/21 10:46 Sodium Chloride 0.9% 10 Ml Syringe FLUSH 10 ml ASDIRECTED PRN Administration Keep Vein Open Sodium Chloride 30 ml 01/02/21 12:00 Sodium Chloride 0.9% 10 Ml Syringe FLUSH ASDIRECTED ALEX Discontinued Medications Generic Name Dose Route Start Last Admin Trade Name Raulq PRN Reason Stop Dose Admin Acetaminophen Confirm 01/02/21 12:55 01/02/21 13:56 Acetaminophen 325 Mg Tab Administered 01/02/21 12:56 Not Given Dose 975 mg .ROUTE .STK-MED ONE CASIRIVIMAB/IMDEVIMAB 10 ml/ 110 mls @ 220 mls/hr 01/02/21 11:58 01/02/21 12:57 Sodium Chloride IV 01/02/21 12:27 220 mls/hr ONETIME ONE Administration - Re-Assessments/Exams Free Text/Narrative Re-Assessment/Exam: 01/02/21 14:04 Covid positive, white blood cell count 3700 hemoglobin 13.1 hematocrit 40.6 platelet count 135,000 lymphocyte count is low at 0.52 as well as monocyte. Total lymphocyte percentage is 13.9 #0.32 sodium 134 potassium 3.2 chloride 101 CO2 is 26 BUN 10 creatinine 0.87 GFR is normal glucose is 187 troponin negative C-reactive protein 17.4 The risk benefits and alternatives of Regeneron the patient she was given a handout regarding the emergency use authorization. Patient understands the risk benefits and alternatives and I feel myself that the patient would benefit from this based on her comorbidities. Patient has tolerated the medication so far well we will plan discharge once stable. 01/02/21 14:11 She is doing well received the Regeneron with no complications. We will plan discharge home, will refill her Robitussin with codeine cough syrup as it seems of helped, Naprosyn as needed for muscle aches and pains, Zofran for nausea, she is taking vitamins zinc vitamin C and vitamin D, quarantine, Covid precautions and prone therapy and information given Departure - Departure Time of Disposition: 14:15 Disposition: Home, Self-Care 01 Clinical Impression: COVID - Discharge Information Prescriptions: P-Ephed HCl/Codeine/Guaifen [Coditussin DAC Liquid] 473 ml PO Q6HR PRN #1 liquid PRN Reason: Cough Naproxen [Naprosyn] 500 mg PO Q12HR #30 tab Ondansetron [Zofran ODT] 4 mg PO Q6H PRN #12 tab.dis PRN Reason: Nausea Instructions: Prone Position Therapy, What You Should Know About COVID-19 to Protect Yourself and Others - CDC, COVID-19: How to Protect Yourself and Others - CDC, Symptoms of COVID-19 - CDC (05/25/2020) Referrals: Robert Gasca MD [Primary Care Provider] - Forms: ED Department Discharge Sepsis Event Note (ED) - Focused Exam Vital Signs: Vital Signs Temp Pulse Resp BP Pulse Ox 01/02/21 10:27 98.0 F 105 H 19 141/86 H 91 L - My Orders Last 24 Hours: My Active Orders 01/02/21 10:39 CXR [Chest 1V Frontal] [CR] Stat UA RFX CRISTIAN AND CULT IF INDIC [URIN] Stat Sodium Chloride 0.9% [Saline Flush] 10 ml FLUSH ASDIRECTED PRN Peripheral IV Insertion Adult [OM.PC] Stat EKG 12 Lead [EK] Stat 01/02/21 10:40 Peripheral IV Care [RC] . DIRECTED PROCALCITONIN [REF] Stat 01/02/21 11:58 Vital Signs [RC] Q15M EPINEPHrine [Adrenalin] 0.3 mg IM ONETIME PRN Famotidine [Pepcid] 20 mg IVPUSH ONETIME PRN diphenhydrAMINE [Benadryl] 50 mg IVPUSH ONETIME PRN methylPREDNISolone Sod Succ [Solu-MEDROL] 125 mg IVPUSH ONETIME PRN 01/02/21 12:00 Sodium Chloride 0.9% [Saline Flush] 30 ml FLUSH ASDIRECTED - Assessment/Plan Last 24 Hours: My Active Orders 01/02/21 10:39 CXR [Chest 1V Frontal] [CR] Stat UA RFX CRISTIAN AND CULT IF INDIC [URIN] Stat Sodium Chloride 0.9% [Saline Flush] 10 ml FLUSH ASDIRECTED PRN Peripheral IV Insertion Adult [OM.PC] Stat EKG 12 Lead [EK] Stat 01/02/21 10:40 Peripheral IV Care [RC] . DIRECTED PROCALCITONIN [REF] Stat 01/02/21 11:58 Vital Signs [RC] Q15M EPINEPHrine [Adrenalin] 0.3 mg IM ONETIME PRN Famotidine [Pepcid] 20 mg IVPUSH ONETIME PRN diphenhydrAMINE [Benadryl] 50 mg IVPUSH ONETIME PRN methylPREDNISolone Sod Succ [Solu-MEDROL] 125 mg IVPUSH ONETIME PRN 01/02/21 12:00 Sodium Chloride 0.9% [Saline Flush] 30 ml FLUSH ASDIRECTED
[2021-01-02] MEDS ORDERED: Sodium Chloride 0.9% 10 ML Syringe FLUSH PRN (10:39)
[2021-01-02] MEDS ORDERED: Famotidine 20 MG/2 ML SDV IVPUSH PRN (11:58)
[2021-01-02] MEDS ORDERED: methylPREDNISolone Sodium Succinate 125 MG/2 ML SDV IVPUSH PRN (11:58)
[2021-01-02] MEDS ORDERED: diphenhydrAMINE 50 MG/ML SDV IVPUSH PRN (11:58)
[2021-01-02] MEDS ORDERED: EPINEPHrine 1 MG/ML SDV IM PRN (11:58)
[2021-01-02] MEDS ORDERED: Sodium Chloride 0.9% 10 ML Syringe FLUSH SCH (12:00)
[2021-01-02] MEDS ORDERED: Acetaminophen 325 MG Tab ONE (12:55)
[2021-01-02] MEDS ORDERED: Acetaminophen 325 MG Tab PO ONE (15:11)
--- NOTE | 2021-01-03 08:42 | CR ---
Chest: Portable view of the chest was obtained. Comparison: No prior chest imaging is available. Patchy areas of increased density are seen on both sides of the chest, worse on the left side. Heart size and mediastinum are within normal limits. Bony structures show nothing acute. Impression: 1. Patchy areas of increased density in both sides of chest, worse on the left side. Findings are suspicious for COVID pneumonia. Please correlate with patient's symptoms. Diagnostic code #3
== END 2021-01-02 15:13 | disposition home or self-care (01) ==
LOC: JD.ED 10:17
DX: U07.1 COVID-19 (principal); J45.909 Unspecified asthma, uncomplicated; E66.9 Obesity, unspecified; Z68.42 Body mass index [BMI] 45.0-49.9, adult; Z91.040 Latex allergy status; Z91.011 Allergy to milk products; Z20.822 Contact with and (suspected) exposure to COVID-19
CPT/HCPCS: 36415; 71045; 80053; 84145; 84484; 85025; 85379; 86140; 87635; 93005; 99285; A9270; M0243; Q0243; U0002